=== PATIENT | male | born 1975 | race Caucasian/White ===

== ENCOUNTER 2017-03-29 22:02 | Emergency (ER) | payer OTHER ==
[2017-03-29 22:17] VITALS: BP 135/82
--- NOTE | 2017-03-29 22:43 | ED Physician Documentation ---
PD HPI LOWER EXT INJURY - Stated complaint Stated Complaint: LT FT PAIN - Chief complaint Chief Complaint: Trauma Ext - History obtained from History obtained from: Patient - History of Present Illness PD HPI LOW EXT INJURY LOCATION: Left, Foot Type of injury: Twist Where injury occurred: Home (Has had pain in the bottom of the foot near heel intermittently for 6 months, worse when walking barefoot and after long day on feet. Today was playing with kids and had twist of foot and abrupt worse pain.) Timing - onset: Today Timing - details: Abrupt onset (today), Still present Worsened by: Moving, Palpating, Other (weight on it) Associated symptoms: No: Weakness, Numbness, Swelling, Discolored Similar symptoms before: No diagnosis Recently seen: Not recently seen Review of Systems Constitutional: denies: Fever Skin: denies: Rash, Lesions Neurologic: denies: Focal weakness, Numbness PD PAST MEDICAL HISTORY - Past Medical History Past Medical History: No Neuro: None Musculoskeletal: None - Past Surgical History Past Surgical History: Yes - Present Medications Home Medications: Ambulatory Orders Medication Instructions Recorded Confirmed Naproxen [Naprosyn] 500 mg PO BID #20 tablet 03/29/17 - Allergies Allergies/Adverse Reactions: Allergies Allergy/AdvReac Type Severity Reaction Status Date / Time bee sting Allergy Intermediate Edema Uncoded 03/29/17 22:14 - Social History Does the pt smoke?: Yes Smoking Status: Current every day smoker Does the pt drink ETOH?: Yes Does the pt have substance abuse?: No - Immunizations Immunizations are current?: Yes Immunizations: TDAP current <10years PD ED PE NORMAL - Vitals Vital signs reviewed: Yes - General General: Alert and oriented X 3, Well developed/nourished, Other (using borrowed crutches to reduce weight bearing.) - Back Back: No spinal TTP - Derm Derm: Normal color, Warm and dry, No rash - Extremities Extremities: No deformity, No edema, No calf tenderness / cord, Other (left unit tender proximal plantar near proximal clacaneus, without rash, redness, sores. Achilles and posterior heel not tender. Passive stretch does hurt some. Torsional movement of the foot hurts more. ) - Neuro Neuro: No motor deficit, No sensory deficit Results - Vitals Vitals: Vital Signs - 24 hr 03/29/17 22:14 Temperature 36.5 C Heart Rate 77 Respiratory 16 Rate Blood Pressure 135/82 H O2 Saturation 97 Oxygen O2 Source Room air PD MEDICAL DECISION MAKING - ED course Complexity details: reviewed results, considered differential (No spurs or arthritis on xray. Seems like plantar fasciitis. May have element of new sprain to it as well.), d/w patient Departure - Departure Disposition: 01 Home, Self Care Clinical Impression: Foot pain, left, Plantar fasciitis Condition: Stable Record reviewed to determine appropriate education?: Yes Instructions: ED Plantar Fasciitis, ED Sprain Foot Follow-Up: Ashly Heaton MD [Primary Care Provider] - Micha Stein MD [Provider Admit Priv/Credential] - Prescriptions: Naproxen [Naprosyn] 500 mg PO BID #20 tablet Comments: Cast boot when walking around for the next 7-10 days. It seems likely a foot sprain or some inflammation of the plantar fascia. Use naproxen or ibuprofen 2- 3 times a day for the next 10 days. Take it with food so it does not bother her stomach. Weightbearing and activity are okay as long as the motion of the foot is protected with the splint. Recheck with your family doctor or orthopedics in about a week if not improved., Call for an appointment. Discharge Date/Time: 03/30/17 00:05
[2017-03-29] MEDS ORDERED: IBUPROFEN 600 MG TABLET PO STA (23:34)
[2017-03-29] MEDS ORDERED: ACETAMINOPHEN 325 MG TABLET PO STA (23:34)
[2017-03-29] MEDS ORDERED: HYDROcod/ACET 5/325 Prepack 6 PO ONE ×2 (23:34→23:45)
[2017-03-29] MEDS ORDERED: ACETAMINOPHEN 325 MG TABLET PO ONE (23:45)
[2017-03-29] MEDS ORDERED: IBUPROFEN 600 MG TABLET PO ONE (23:45)
--- NOTE | 2017-03-31 13:09 | XRAY Report ---
THREE-VIEW LEFT FOOT: 03/29/2017 CLINICAL INDICATION: Injury, pain. FINDINGS: Films are returned for dictation on 03/31/2017. AP, lateral, oblique views of the left foot demonstrate no evidence of acute fracture or dislocation. The joint spaces are preserved. No radiopaque foreign body is seen in the soft tissues. IMPRESSION: NORMAL LEFT FOOT. JOB #: [id number] EXT JOB #:[id number]
== END 2017-03-30 00:05 | disposition home or self-care (01) ==
LOC: ED 22:02
DX: M79.672 Pain in left foot (principal); X50.0XXA Overexertion from strenuous movement or load, initial encounter; Y92.019 Unspecified place in single-family (private) house as the place of occurrence of the external cause; M72.2 Plantar fascial fibromatosis; F17.200 Nicotine dependence, unspecified, uncomplicated
CPT/HCPCS: 73630; 99283; A9270

== ENCOUNTER 2018-01-30 17:23 | Outpatient (CLI) | payer OTHER ==
--- NOTE | 2018-01-30 22:55 | XRAY Report ---
Procedure Date: 01/30/2018 Accession Number: [id number] / [id number] Procedure: XR - Shoulder 3 View RT CPT Code: FULL RESULT: EXAM: RIGHT SHOULDER RADIOGRAPHY EXAM DATE: 01/30/2018 05:37 PM. CLINICAL HISTORY: Shoulder pain, right. COMPARISON: Left shoulder radiographs 12/22/2007. Right shoulder MRI 08/04/2012. TECHNIQUE: 3 views. FINDINGS: Bones: Normal. No fracture or bone lesion. Joints: No dislocation/subluxation. Glenohumeral joint is unremarkable without significant degenerative change. There is mild foreshortening of the distal clavicle, likely interval surgical resection when compared to prior MRI. No significant spurring from the distal clavicle or acromion. Soft tissues: The visualized hemithorax is unremarkable. No soft tissue swelling. IMPRESSION: Postsurgical changes at the acromioclavicular joint without acute osseous abnormality or significant degenerative change at the glenohumeral joint. RADIA
== END 2018-01-30 17:24 | disposition home or self-care (01) ==
LOC: DI 17:23
PROVIDERS: ATTEND Family Medicine
DX: M25.511 Pain in right shoulder (principal)

== ENCOUNTER 2019-12-09 12:36 | Outpatient (CLI) | payer OTHER ==
[2019-12-09 12:46] LABS: BASOPHILS % (AUTO) 0.3 %; EOSINOPHILS # (AUTO) 0.1 10^3/uL (0.0-0.7); EOSINOPHILS % (AUTO) 1.2 %; HGB - HEMOGLOBIN 16.2 g/dL (14.0-18.0); LYMPHOCYTES # (AUTO) 2.8 10^3/uL (1.5-3.5); LYMPHOCYTES % (AUTO) 42.9 %; MEAN CORPUSCULAR HEMOGLOBIN 29.6 pg (27.0-31.0); MEAN CORPUSCULAR HGB CONC 33.9 g/dL (32.0-36.0); MEAN CORPUSCULAR VOLUME 87.2 fL (80.0-94.0); MEAN PLATELET VOLUME 8.9 fL (7.4-11.4); MONOCYTES # (AUTO) 0.5 10^3/uL (0.0-1.0); MONOCYTES % (AUTO) 8.2 %; NEUTROPHILS # (AUTO) 3.1 10^3/uL (1.5-6.6); NEUTROPHILS % (AUTO) 47.1 %; PLT - PLATELET COUNT 195 10^3/uL (130-450); RED BLOOD COUNT 5.48 10^6/uL (4.70-6.10); RED CELL DISTRIBUTION WIDTH 12.7 % (12.0-15.0); WHITE BLOOD COUNT 6.6 x10^3/uL (4.8-10.8)
[2019-12-09 13:04] LABS: ALBUMIN 4.4 g/dL (3.2-5.5); ALBUMIN/GLOBULIN RATIO 1.2 (1.0-2.2); BILIRUBIN,TOTAL 1.1 mg/dL (0.2-1.0); CALCIUM 9.3 mg/dL (8.5-10.3); CREATININE 0.9 mg/dL (0.6-1.2); TOTAL PROTEIN 8.2 g/dL (6.7-8.2)
== END 2019-12-09 12:37 | disposition home or self-care (01) ==
LOC: LAB 12:36
PROVIDERS: ATTEND Family Medicine
DX: R10.9 Unspecified abdominal pain (principal)
CPT/HCPCS: 36415; 80053; 82150; 83690; 85025

== ENCOUNTER 2019-12-10 15:34 | Outpatient (CLI) | payer OTHER ==
[2019-12-10] MEDS ORDERED: IOVERSOL 320 50 ML VIAL ONE (16:18)
[2019-12-10] MEDS ORDERED: IOVERSOL 320 100 ML VIAL IVP ONE ×2 (16:18→17:26)
[2019-12-10] MEDS ORDERED: IOVERSOL 320 50 ML VIAL PO ONE (17:26)
--- NOTE | 2019-12-10 17:59 | CT Report ---
Reason: ABD PAIN Procedure Date: 12/10/2019 Accession Number: [id number] / [id number] Procedure: CT - Abdomen/Pelvis W CPT Code: Final Report FULL RESULT: PROCEDURE: Abdomen/Pelvis W INDICATIONS: ABD PAIN CONTRAST: IV CONTRAST: Optiray 320 ml: 100 PO CONTRAST: Optiray 320 ml50 TECHNIQUE: After the administration of oral and intravenous contrast, 5 mm thick sections acquired from the diaphragms to the symphysis. 5 mm thick coronal and sagittal reformats were acquired. For radiation dose reduction, the following was used: automated exposure control, adjustment of mA and/or kV according to patient size. COMPARISON: None. FINDINGS: Image quality: Excellent. ABDOMEN: Lung bases: Lung bases are clear. Heart size is normal. Solid organs: Liver and spleen are normal in size. Question of hepatic steatosis. Gallbladder is unremarkable Biliary system is non dilated. Pancreas enhances normally. No adrenal nodules. Kidneys demonstrate normal size and enhancement, without hydronephrosis. Peritoneum and bowel: Bowel loops demonstrate normal wall thickness and caliber. No free fluid or air. Nodes and vessels: No retroperitoneal or mesenteric adenopathy by size criteria. Aorta and inferior vena cava are normal in size. Accessory left inferior retroaortic renal vein. Miscellaneous: No ventral hernias. PELVIS: Genitourinary: Bladder is unremarkable. Miscellaneous: No inguinal hernias or adenopathy. Bones: No suspicious bony lesions. No vertebral body compression fractures. Mild to moderate degenerative changes. IMPRESSION: 1. No acute abnormality identified. No free fluid. No bowel obstruction. 2. Probable hepatic steatosis. Reviewed by: Osvaldo Teresa MD on 12/10/2019 5:58 PM PDT Approved by: Osvaldo Teresa MD on 12/10/2019 5:58 PM PDT Station ID: [id number]
== END 2019-12-10 15:35 | disposition home or self-care (01) ==
LOC: DI 15:34
PROVIDERS: ATTEND Family Medicine
DX: R10.9 Unspecified abdominal pain (principal)
CPT/HCPCS: 74177; Q9967